=== PATIENT | female | born 1945 | race Caucasian/White ===

== ENCOUNTER 2017-04-12 08:18 | Emergency (ER) | payer OTHER ==
[~2017-04-12] VITALS: Ht 162.6 cm; Wt 75.0 kg
[~2017-04-12 08:18] MED LIST: PRIL20TA2 PO
[2017-04-12 08:20] VITALS: BP 229/106; PULSE 95; RESP 18; TEMP 99.1; O2SAT 97
[2017-04-12] MEDS ORDERED: FAMO1TAB37 PO (08:49)
[2017-04-12 08:51] VITALS: BP 193/115
[2017-04-12] MEDS ORDERED: AZIT250T3 PO (09:25)
--- NOTE | 2017-04-12 09:25 | PD ---
HPI Chief Complaint: Cold / Flu Symptoms Time Seen by Provider: 09:05 Travel History International Travel<30 days: No Contact w/Intl Traveler<30days: No Traveled to known affect area: No History of Present Illness HPI This is a 71-year-old female who presents to the emergency department with nasal congestion, sore throat and nonproductive cough that been going on for 2 days, constant, moderate severity associated with a fever to 100.8. She says she has a history of asthma and bronchial pneumonia. She says her blood pressure she checks every day and is usually 140/80 and it only goes up when she is sick. She says she doesn't like to take medications. She says this usually clears up with azithromycin and she doesn't want this to progress to pneumonia. PFSH Past Medical History Cardiovascular Problems: Yes (HTN) High Cholesterol: Yes Diminished Hearing: No GERD: Yes Hypertension: Yes Ulcer: Yes Influenza Vaccination: No Menopausal: Yes Past Surgical History Appendectomy: Yes Gynecologic Surgery: Yes (hysterectomy ) Hysterectomy: Yes Social History Alcohol Use: No Tobacco Use: No Substance Use: No Allergies-Medications (Allergen,Severity, Reaction): Coded Allergies: acetaminophen (Unverified Allergy, Intermediate, HIVES, 04/12/17) Reported Meds & Prescriptions Reported Meds & Active Scripts Active Reported Pepcid (Famotidine) 20 Mg Tab 10 Mg PO DAILY Review of Systems Except as stated in HPI: all other systems reviewed are Neg Physical Exam Narrative GENERAL:Well appearing, no acute distress SKIN: Focused skin assessment warm and dry. HEAD: Atraumatic. Normocephalic. EYES: Pupils equal and round. No injection or drainage. ENT: Moist mucous membranes. Posterior pharyngeal erythema with no exudates. NECK: Trachea midline. CARDIOVASCULAR: Regular rate and rhythm. No murmur appreciated. RESPIRATORY: Clear to auscultation. Breath sounds equal bilaterally. GASTROINTESTINAL: Abdomen soft, non-tender, nondistended. MUSCULOSKELETAL: No obvious deformities. NEUROLOGICAL: Awake and alert. No obvious cranial nerve deficits. Moving all extremities. PSYCHIATRIC: Appropriate mood and affect; insight and judgment normal. Data Data Last Documented VS Vital Signs Date Time Temp Pulse Resp B/P (MAP) Pulse Ox O2 Delivery O2 Flow Rate FiO2 04/12/17 08:51 193/115 (141) 04/12/17 08:20 99.1 95 18 97 Room Air MDM Medical Decision Making Medical Screen Exam Complete: Yes Emergency Medical Condition: Yes Differential Diagnosis Pneumonia, bronchitis, influenza, sinusitis Narrative Course This is a 71-year-old female who presents to the emergency department with cough , nasal congestion and sore throat. Patient has had fevers at home. I recommended that she have the flu test performed but she refuses. She says she doesn't like to take medications and she doesn't like testing. She says her blood pressure normally is 140/80 and it's just high because she is sick. She really just wants an antibiotic for her bronchitis to prevent her from going into pneumonia. She is nontoxic appearing and not hypoxic so I think she is appropriate for outpatient therapy. I will provide her a prescription for azithromycin but I did recommend that she return to the emergency department if she had all worsens because of concern she may have influenza. Diagnosis Primary Impression: Acute bronchitis Qualified Codes: J20.9 - Acute bronchitis, unspecified Patient Instructions: General Instructions Additional Instructions: If you develop severe chest pain, shortness of breath, sweating, lightheadedness , dizziness or difficulty breathing return to the emergency department immediately. Followup with your primary care physician in 2-3 days if your symptoms are not resolved. Med/Other Pt SpecificInfo: Prescription(s) given Scripts Azithromycin (Azithromycin) 250 Mg Tab 250 MG PO DIRECTED for Infection, #6 TAB 0 Refills Take 2 tabs (500 mg) on day 1 then 1 tab daily x 4 days. Prov: Margret Amador MD 04/12/17 Disposition: DISCHARGE HOME Condition: Stable Margret Amador MD Apr 12, 2017 09:25
== END 2017-04-12 09:46 | disposition home or self-care (01) ==
LOC: NEPD 08:18
DX: J20.9 Acute bronchitis, unspecified (principal); I10 Essential (primary) hypertension; E78.00 Pure hypercholesterolemia, unspecified; K21.9 Gastro-esophageal reflux disease without esophagitis; J45.909 Unspecified asthma, uncomplicated; Z79.899 Other long term (current) drug therapy; Z88.6 Allergy status to analgesic agent
CPT/HCPCS: 99283

== ENCOUNTER 2017-04-30 04:40 | Emergency (ER) | payer OTHER ==
[~2017-04-30] VITALS: Ht 162.6 cm; Wt 75.0 kg
[~2017-04-30 04:40] MED LIST changes: +AZIT250T3 PO; +FAMO1TAB37 PO; -PRIL20TA2 PO
[2017-04-30 04:42] VITALS: BP 194/94; PULSE 70; RESP 18; TEMP 97.8; O2SAT 99
[2017-04-30] MEDS ORDERED: KETOROLAC TROMETHAMINE 60 MG/2 ML (IM) VIAL IM ONE (05:00)
[2017-04-30] MEDS ORDERED: DEXAMETHASONE SOD PHOS 20 MG/5 ML VIAL IM ONE (05:00)
--- NOTE | 2017-04-30 05:26 | PD ---
HPI Chief Complaint: Pain: Acute or Chronic Time Seen by Provider: 05:00 Travel History International Travel<30 days: No Contact w/Intl Traveler<30days: No Traveled to known affect area: No History of Present Illness HPI Patient is a 71-year-old female presented to the emergency room for evaluation of left anterior rib pain. Patient states the pain started 1 week ago due to a coughing spell, she felt as if she "popped a rib". Patient has been taking aspirin and naproxen with no significant improvement in her symptoms. Pain started suddenly, has been consistent over the last week. There are no alleviating factors, pain is exacerbated with movement and deep breathing. Patient states she feels as if she cannot take a deep breath but is not short of breath. She denies any fever, chills, nausea, vomiting, chest pain. Patient reports the pain is a 10 out of 10. She has not taken any medication since Monday. PFSH Past Medical History Cardiovascular Problems: Yes (HTN) High Cholesterol: Yes GERD: Yes Hypertension: Yes Ulcer: Yes Menopausal: Yes Past Surgical History Appendectomy: Yes Gynecologic Surgery: Yes (hysterectomy ) Hysterectomy: Yes Social History Alcohol Use: No Tobacco Use: No Substance Use: No Allergies-Medications (Allergen,Severity, Reaction): Coded Allergies: acetaminophen (Unverified Allergy, Intermediate, HIVES, 04/30/17) Reported Meds & Prescriptions Reported Meds & Active Scripts Active Reported Pepcid (Famotidine) 20 Mg Tab 10 Mg PO DAILY Review of Systems Except as stated in HPI: all other systems reviewed are Neg Respiratory: Positive: Pleuritic Pain Musculoskeletal: Positive: Pain Physical Exam Narrative GENERAL: Well-developed, well-nourished, alert female. Presenting in no acute distress. SKIN: Warm and dry. No rash or obvious lesions HEAD: Atraumatic. Normocephalic. EYES: Pupils equal and round. No scleral icterus. No injection or drainage. ENT: No nasal bleeding or discharge. Mucous membranes pink and moist. NECK: Trachea midline. No JVD. CARDIOVASCULAR: Regular rate and rhythm. RESPIRATORY: No accessory muscle use. Clear to auscultation. Breath sounds equal bilaterally. GASTROINTESTINAL: Abdomen soft, non-tender, nondistended. Hepatic and splenic margins not palpable. MUSCULOSKELETAL: Extremities without clubbing, cyanosis, or edema. No obvious deformities. Tenderness to palpation on left anterior ribs. No crepitus noted. NEUROLOGICAL: Awake and alert. No obvious cranial nerve deficits. Motor grossly within normal limits. Five out of 5 muscle strength in the arms and legs. Normal speech. PSYCHIATRIC: Appropriate mood and affect; insight and judgment normal. Data Data Last Documented VS Vital Signs Date Time Temp Pulse Resp B/P (MAP) Pulse Ox O2 Delivery O2 Flow Rate FiO2 04/30/17 04:42 97.8 70 18 194/94 (127) 99 Orders Orders Chest, Pa & Lat (04/30/17 ) Ketorolac Inj (Toradol Inj) (04/30/17 05:00) Dexamethasone Inj (Decadron Inj) (04/30/17 05:00) MDM Medical Decision Making Medical Screen Exam Complete: Yes Emergency Medical Condition: Yes Interpretation(s) Vital Signs Date Time Temp Pulse Resp B/P (MAP) Pulse Ox O2 Delivery O2 Flow Rate FiO2 04/30/17 04:42 97.8 70 18 194/94 (127) 99 Differential Diagnosis Pleurisy versus contusion versus fracture versus costochondritis versus other Narrative Course Patient is a 71-year-old female presenting to the emergency department for evaluation of left anterior rib pain that has been ongoing for 1 week. Patient' s vital signs are stable, she is well oxygenated on room air. Chest x-ray ordered, patient was given Toradol and dexamethasone now. Patient reports improvement in pain after administration of Toradol and dexamethasone. Chest x-ray shows a compression fracture at L1. This was discussed with my attending physician. Patient will be referred to orthopedic surgeon for kyphoplasty, she is encouraged to follow-up with her primary doctor. At this time patient will be provided with medications to help alleviate pain. She is encouraged to apply warm heat to the affected area. Patient was encouraged to continue deep breathing to avoid fluid buildup in her lungs. She verbalized understanding of these instructions. Patient is stable for discharge. Diagnosis Primary Impression: Compression fracture of L1 lumbar vertebra Qualified Codes: S32.010A - Wedge compression fracture of first lumbar vertebra, initial encounter for closed fracture Additional Impression: Rib pain on left side Referrals: [facility] 1 week Primary Care Physician Patient Instructions: General Instructions, Vertebral Compression Fracture (ED) Additional Instructions: Follow-up with your primary doctor or at the [facility] Apply warm heat to the affected area, continue deep breathing exercises Take medications as needed and as directed for pain Do not drive or operate machinery until you know how you would get to the medication. Med/Other Pt SpecificInfo: Prescription(s) given Scripts Tramadol (Tramadol) 50 Mg Tab 50 MG PO Q6H Y for PAIN, #15 TAB 0 Refills Prov: Jackelyn Weiss 04/30/17 Lidocaine (Lidoderm) 5 % Adh..patch 1 PATCH TOPICAL DAILY Y for PAIN SCALE 1 TO 10, #15 Prov: Jackelyn Weiss 04/30/17 Prednisone (Prednisone) 50 Mg Tab 50 MG PO DAILY for 5 Days, #5 TAB 0 Refills Prov: Jackelyn Weiss 04/30/17 Disposition: 01 DISCHARGE HOME Condition: Stable Jackelyn Weiss Apr 30, 2017 05:26
--- NOTE | 2017-04-30 05:40 | RADRPT ---
EXAM DATE/TIME: 04/30/2017 05:16 [facility] COMPARISON: No previous studies available for comparison. INDICATIONS : Patient states she coughed 1 week ago and has had left sided rib pain since. MEDICAL HISTORY : None. SURGICAL HISTORY : None. ENCOUNTER: Initial ACUITY: 1 week PAIN SCORE: 8/10 LOCATION: Bilateral chest FINDINGS: PA and lateral views of the chest demonstrate minimal basilar atelectasis or scarring. No significant effusion. No pneumothorax. Heart size mildly enlarged. Mildly tortuous aorta. Vertebral plana at L1 of uncertain age. CONCLUSION: 1. Linear atelectasis or scarring at the lung bases. Shawn Ann MD on April 30, 2017 at 5:36 Board Certified Radiologist. This report was verified electronically.
[2017-04-30] MEDS ORDERED: LIDO1ADH4 TOPICAL (06:02)
[2017-04-30] MEDS ORDERED: PRED50 PO (06:02)
[2017-04-30] MEDS ORDERED: TRAM50TA PO (06:02)
== END 2017-04-30 06:20 | disposition home or self-care (01) ==
LOC: NEPD 04:40
DX: S32.010A Wedge compression fracture of first lumbar vertebra, initial encounter for closed fracture (principal); X58.XXXA Exposure to other specified factors, initial encounter; R07.81 Pleurodynia; I10 Essential (primary) hypertension; E78.00 Pure hypercholesterolemia, unspecified; K21.9 Gastro-esophageal reflux disease without esophagitis
CPT/HCPCS: 71046; 96372; 99283; J1100; J1885

== ENCOUNTER 2017-05-25 11:21 | Emergency (ER) | payer OTHER ==
[~2017-05-25 11:21] MED LIST changes: -AZIT250T3 PO; +LIDO1ADH4 TOPICAL; +PRED50 PO; +TRAM50TA PO
[2017-05-25 12:01] VITALS: BP 217/98; PULSE 85; RESP 16; TEMP 98.3; O2SAT 98
[2017-05-25 13:02] VITALS: BP 177/77; PULSE 74; RESP 16; O2SAT 98
[2017-05-25] MEDS ORDERED: KETOROLAC TROMETHAMINE 60 MG/2 ML (IM) VIAL IM ONE (13:15)
--- NOTE | 2017-05-25 13:22 | PD ---
HPI Chief Complaint: Back/ Neck Pain or Injury Time Seen by Provider: 13:03 Travel History International Travel<30 days: No Contact w/Intl Traveler<30days: No Traveled to known affect area: No History of Present Illness HPI The patient was seen and examined in the presence of the nurse. This patient complains of back pain. Location is left flank area. Duration 3 days. Symptoms are moderate to severe at times. Worse with certain movements. There is been no injury. No urinary complaints. Denies fever. Patient was here recently for rib pain but this is a different area and a different pain. No alleviating factors. PFSH Past Medical History Asthma: Yes Cardiovascular Problems: Yes (HTN) High Cholesterol: Yes Diminished Hearing: No Gastrointestinal Disorders: Yes GERD: Yes Hypertension: Yes Respiratory: Yes Ulcer: Yes Tetanus Vaccination: > 5 Years Influenza Vaccination: No Menopausal: Yes : 2 Para: 2 Past Surgical History Appendectomy: Yes Gynecologic Surgery: Yes (hysterectomy ) Hysterectomy: Yes Social History Alcohol Use: No Tobacco Use: No (quit 10 years ago) Substance Use: No Allergies-Medications (Allergen,Severity, Reaction): Coded Allergies: acetaminophen (Verified Allergy, Intermediate, HIVES, 05/25/17) Reported Meds & Prescriptions Reported Meds & Active Scripts Active Reported Pepcid (Famotidine) 20 Mg Tab 10 Mg PO DAILY Review of Systems General / Constitutional: No: Fever Eyes: No: Visual changes HENT: No: Headaches Cardiovascular: No: Chest Pain or Discomfort Respiratory: No: Shortness of Breath Gastrointestinal: No: Abdominal Pain Genitourinary: Positive: Flank Pain, No: Dysuria Musculoskeletal: Positive: Pain Skin: No Rash Neurologic: No: Weakness Psychiatric: No: Depression Endocrine: No: Polydipsia Hematologic/Lymphatic: No: Easy Bruising Physical Exam Narrative GENERAL: Well-nourished, well-developed patient with back pain SKIN: Focused skin assessment reveals no rash and nodules. Skin is Warm and dry. HEAD: Atraumatic. Normocephalic. EYES: Pupils equal and round. No scleral icterus. No injection or drainage. ENT: No nasal bleeding or discharge. Mucous membranes pink and moist. NECK: Trachea midline. No JVD. CARDIOVASCULAR: Regular rate and rhythm. No murmur appreciated. RESPIRATORY: No accessory muscle use. Clear to auscultation. Breath sounds equal bilaterally. GASTROINTESTINAL: Abdomen soft, non-tender, nondistended. Hepatic and splenic margins not palpable. MUSCULOSKELETAL: No obvious deformities. No clubbing. No cyanosis. No edema. Has left lumbar musculature and left CVA tenderness. No midline tenderness NEUROLOGICAL: Awake and alert. No obvious cranial nerve deficits. Motor grossly within normal limits. Normal speech. PSYCHIATRIC: Appropriate mood and affect; insight and judgment normal. Data Data Last Documented VS Vital Signs Date Time Temp Pulse Resp B/P (MAP) Pulse Ox O2 Delivery O2 Flow Rate FiO2 05/25/17 15:15 97.9 74 15 177/83 (114) 98 Room Air Orders Orders Ct Abd/Pel W/O Iv Contrast (05/25/17 ) Ketorolac Inj (Toradol Inj) (05/25/17 13:15) Urinalysis - C+S If Indicated (05/25/17 13:22) Labs Laboratory Tests Test 05/25/17 13:38 Urine Color LIGHT-YELLOW Urine Turbidity CLEAR Urine pH 7.0 Urine Specific [place] 1.008 Urine Protein NEG mg/dL Urine Glucose (UA) NEG mg/dL Urine Ketones NEG mg/dL Urine Occult Blood TRACE Urine Nitrite NEG Urine Bilirubin NEG Urine Urobilinogen LESS THAN 2.0 MG/DL Urine Leukocyte Esterase NEG Urine RBC 2 /hpf Urine WBC LESS THAN 1 /hpf Urine Squamous Epithelial Cells 2 /hpf Urine Transitional Epithelial Cells <1 /hpf Microscopic Urinalysis Comment CULT NOT INDICATED MDM Medical Decision Making Medical Screen Exam Complete: Yes Emergency Medical Condition: Yes Medical Record Reviewed: Yes Differential Diagnosis Lumbar strain, AAA, kidney stone, sciatica Narrative Course I have reviewed the patient's electronic medical record. Reviewed her last visit here. Reviewed her chest x-ray which shows compression fracture of unknown duration Patient is here for different back pain. She has no midline pain or tenderness in this is not from that compression fracture I gave her Toradol injection Urinalysis is normal CT abdomen and pelvis shows only small adrenal adenoma like finding. No AAA. She looks clinically well on recheck Stable for outpatient follow-up. She should discuss her CT findings with your physician and track her blood pressures I offered pain medication but she has tramadol at home. She asked for a few muscle relaxers. I've warned her about sedation Diagnosis Primary Impression: Acute left flank pain Additional Impression: Accelerated hypertension Additional Instructions: The patient was advised to follow up with their physician and return if they worsen. The patient was warned about potential sedation for the medications they will receive on prescription. Check and record blood pressure daily Med/Other Pt SpecificInfo: Prescription(s) given Disposition: 01 DISCHARGE HOME Condition: Stable Hitesh Bonilla MD May 25, 2017 13:22
[2017-05-25 13:58] LABS: BILIRUBIN, URINE NEG (NEG); BLOOD, URINE TRACE (NEG); GLUCOSE,URINE NEG (NEG); KETONE, URINE NEG (NEG); NITRITE,URINE NEG (NEG); SQUAMOUS EPITHELIAL CELL URINE 2 /hpf (0-5); TRANSITIONAL EPI CELLS, URINE <1 /hpf; URINE COLOR LIGHT-YELLOW (YELLW/STRAW); URINE LEUKOCYTE ESTERASE NEG (NEG)
--- NOTE | 2017-05-25 14:24 | RADRPT ---
EXAM DATE/TIME: 05/25/2017 14:12 [facility] COMPARISON: No previous studies available for comparison. INDICATIONS : Left sided flank pain. ORAL CONTRAST: No oral contrast ingested. RADIATION DOSE: 18.79 CTDIvol (mGy) MEDICAL HISTORY : Ulcers. Hypertension. Gastroesophageal reflux disease. SURGICAL HISTORY : Hysterectomy. Appendectomy. ENCOUNTER: Initial ACUITY: 1 day PAIN SCALE: 9/10 LOCATION: Left flank TECHNIQUE: Volumetric scanning of the abdomen and pelvis was performed. Using automated exposure control and ad justment of the mA and/or kV according to patient size, radiation dose was kept as low as reasonably achievable to obtain optimal diagnostic quality images. DICOM format image data is available electro nically for review and comparison. FINDINGS: LOWER LUNGS: The visualized lower lungs are clear. LIVER: Homogeneous density without lesion. There is no dilation of the biliary tree. No calcified gallston es. SPLEEN: Normal size without lesion. PANCREAS: Within normal limits. KIDNEYS: Normal in size and shape. There is no mass, stone, or hydronephrosis. ADRENAL GLANDS: Right adrenal bed is unremarkable. There is a 1.4 cm left adrenal nodule. VASCULAR: There is no aortic aneurysm. BOWEL/MESENTERY: The stomach, small bowel, and colon demonstrate no acute abnormality. There is no free intraperitone al air or fluid. Scattered diverticulosis throughout the colon. No inflammatory changes. There is sto ol throughout the colon. ABDOMINAL WALL: Within normal limits. RETROPERITONEUM: There is no lymphadenopathy. BLADDER: No wall thickening or mass. No calcified stones. REPRODUCTIVE: Within normal limits. INGUINAL: There is no lymphadenopathy or hernia. MUSCULOSKELETAL: Within normal limits for patient age. CONCLUSION: 1. 1.4 cm left adrenal nodule. This is most likely an adrenal adenoma. 2. No calcified renal stones or hydronephrosis. 3. Diffuse scattered diverticulosis of the colon. John Camarillo MD on May 25, 2017 at 14:18 Board Certified Radiologist. This report was verified electronically.
[2017-05-25 15:15] VITALS: BP 177/83; PULSE 74; RESP 15; TEMP 97.9; O2SAT 98
[2017-05-25] MEDS ORDERED: ORPH100T2 PO (16:04)
[2017-05-25 16:10] VITALS: BP 146/78; TEMP 97.8
== END 2017-05-25 16:10 | disposition home or self-care (01) ==
LOC: NEPD 11:21
DX: R10.9 Unspecified abdominal pain (principal); I10 Essential (primary) hypertension; M54.9 Dorsalgia, unspecified; J45.909 Unspecified asthma, uncomplicated; E78.00 Pure hypercholesterolemia, unspecified; K21.9 Gastro-esophageal reflux disease without esophagitis; Z87.891 Personal history of nicotine dependence
CPT/HCPCS: 74176; 81001; 96372; 99284; J1885